=== PATIENT | female | born 2000 | race Two or more races ===

== ENCOUNTER 2025-04-13 14:16 | Emergency (ER) | payer MEDICARE, MEDICAID, SELFPAY ==
[2025-04-13 14:32] VITALS: BP 112/74; PULSE 73; RESP 18; TEMP 36.6; O2SAT 96; BMI 21.7
--- NOTE | 2025-04-13 14:41 | XR_ITS ---
Examination: CT brain head without contrast. 2-D sagittal coronal reconstructions Date and time of exam: April 13, 2025, 1546 hours INDICATIONS: Injury to the head today, head pain CTDI: vol (mGy): 47.5 DLP: (mGycm): 882 Technique: Multiple CT axial sections of the brain have been obtained, 5 mm slice thickness. Contrast has not been administered. 2-D sagittal, coronal reconstructions have been obtained Low dose protocols were performed. One or more of the following dose reduction techniques were used; automated exposure control, adjustment of the mA and/or KV according to patient size, use of iterative reconstruction technique. Findings: No significant ventricular enlargement. Intra-axial or extra-axial hemorrhage density is not seen. No mass effect or midline shift Basal cisterns are not remarkable. Fourth ventricle is midline. Cranial vault intact. Impression: Negative for acute hemorrhage, mass effect or midline shift
[2025-04-13] MEDS: ACETAMINOPHEN 500 MG TABLET 1000 MG PO (16:28)
--- NOTE | 2025-04-13 17:29 | PRELIM_ITS ---
CT scan of the head without intravenous contrast (axial sections with sagittal and coronal reformats) April 13, 2025 1546 hours Clinical History: head trauma Comparison: No prior study is available for comparison. Findings: No evidence of intracranial hemorrhage, mass effect or midline shift. The ventricles and CSF spaces are unremarkable. There is a mucosal thickening with small retention cyst or polyp in the left maxillary sinus. The calvarium is unremarkable. Other structures are unremarkable. Impression: No evidence of intracranial hemorrhage, mass effect or midline shift. Other findings as described above. Report Electronically Signed By: Khurram Shankar 04/13/2025 5:28:55 PM [EST]
--- NOTE | 2025-04-13 17:47 | PD.EDRME ---
Rapid Medical Screening Exam RME Arrival date/time: 04/13/25 14:16 25-year-old female presents to the emergency department today stating that she hit her head on a ladder patient reports head pain Chief Complaint: Head Injury Time Seen by Provider: 04/13/25 14:18 Vital signs: Vital Signs Temperature 97.9 F 04/13/25 14:32 Pulse Rate 73 04/13/25 14:32 Respiratory Rate 18 04/13/25 14:32 Blood Pressure 112/74 04/13/25 14:32 Pulse Oximetry (%) 96 04/13/25 14:32 Oxygen Delivery Method Room Air 04/13/25 14:32 Vital signs reviewed by provider: Yes Exam: On exam patient does not appear ill or toxic no acute distress Neurological exam normal Clinical Impression: Imaging ordered Tylenol given
--- NOTE | 2025-04-13 19:36 | EDNOTE_ITS ---
ED Head Injury RME/HPI General Chief complaint: Head Injury Stated complaint: BECK today, hit head yesterday on ladder Time Seen by Provider: 04/13/25 14:18 Arrival date/time: 04/13/25 14:16 25-year-old female patient came in for evaluation regarding headache. Patient had head injury last December, patient fell down the horse, and this morning patient hit his head resulting into headache described as dull ache, severity moderate. Denies any nausea or vomiting. Denies any LOC patient is ambulatory. RME / HPI RME / HPI Narrative: 04/13/25 14:16 25-year-old female presents to the emergency department today stating that she hit her head on a ladder patient reports head pain Exam: On exam patient does not appear ill or toxic no acute distress Neurological exam normal Impression: Imaging ordered Tylenol given Related Data Previous Rx's ?Medication ?Instructions ?Recorded meclizine 12.5 mg tablet 12.5 mg PO TID PRN dizziness #20 03/24/24 tabs scopolamine base 1 mg over 3 days 1 mg topical .72 jose alfredo rs PRN 03/24/24 transdermal patch (Transderm-Scop) dizziness #10 ea ibuprofen 600 mg tablet 600 mg PO Q8H PRN pain #30 t abs 04/13/25 Allergies Allergy/AdvReac Type Severity Reaction Status Date / Time NKA Allergy Unknown Uncoded 04/13/25 14:21 Review of Systems Review of Systems Narrative Review of Systems: Review of system reviewed and within normal limits except mentioned in HPI ED Exam Narrative Physical exam: VITAL SIGNS: Reviewed. GENERAL APPEARANCE: Alert and interactive, follows commands, no acute distress, HEAD AND FACE: Non-traumatic. ENT: PERRL, pink conjunctivitis, eyelid no trauma, Mucous membrane moist. NECK: Supple, nontender, no nuchal rigidity. CHEST: No tenderness, no crepitus, no paradoxical movement, no retractions. LUNGS: Clear, well ventilated, symmetric, no rales, no wheezing, no ronchi, no s tridor, good breath sounds bilaterally. HEART: Regular rate, regular rhythm, no murmur, no gallops. ABDOMEN: Soft, positive bowel sounds, nondistended, no guarding, nontender, no rebound, no masses, RECTAL: Deferred. GENITAL: Deferred. NEUROLOGICAL: Gross motor function intact sensory function intact, Appropriate for age. MUSCULOSKELETAL: low back nontender, full range of motion. EXTREMITIES: Nontender, full range of motion. SKIN: Color pink, dry, no rash, no lacerations, no abrasions, no contusions. LYMPHATICS: Deferred. Course Quality Measures none Orders Category Date Time Status CT head/brain wo con Stat Exams 04/13/25 14:41 Completed Acetaminophen Tab [Tylenol ES Tab] Med 04/13/25 15:51 Discontinued 1,000 mg PO X1 ONE Vital Signs Vital signs: Vital Signs Temperature 97.9 F 04/13/25 14:32 Pulse Rate 73 04/13/25 14:32 Respiratory Rate 18 04/13/25 14:32 Blood Pressure 112/74 04/13/25 14:32 Pulse Oximetry (%) 96 04/13/25 14:32 Oxygen Delivery Method Room Air 04/13/25 14:32 Head Injury MDM Narrative [facility] Narrative:: 04/13/25 14:16 25-year-old female patient came in for evaluation regarding headache. Patient had head injury last December, patient fell down the horse, and this morning patient hit his head resulting into headache described as dull ache, severity moderate. Denies any nausea or vomiting. Denies any LOC patient is ambulatory. CT scan of the head came back unremarkable. Results discussed with the patient and family. Patient stable for discharge home. Patient was given Motrin with significant for headache Stable for discharge home Patient data External records reviewed:: None Clinical information provided by:: patient and family Social determinants that could affect healthcare access:: none Patient has the following chronic illnesses:: None How is presenting disease/condition affected by chronic disease/condition?: no chronic disease Evaluation data The following diagnostics were reviewed and interpreted by me:: radiology exam(s) Lab and/or radiology exams considered but not ordered:: None Interpretation Summary: See results [facility] Medications / Prescriptions Medications or Prescriptions considered but not ordered:: None Medication administrations:: Medication Administration History Discontinued Medications Acetaminophen (Acetaminophen 500 Mg Tablet) 1,000 mg PO X1 ONE Stop: 04/13/25 15:52 Last Admin: 04/13/25 16:28 Dose: 1,000 mg Documented By: ED Tylenol Consultations Consultation(s) initiated? (list below): No Diagnosis Differential diagnosis head injury: closed head injury and other (Headache, contusion) Most likely diagnosis given after review of the tests above:: Headache Admission Indicated Admission indicated?: not indicated Admission Request Was there a request for admission?: No Disposition Plan Disposition Plan: Discharge Discharge Attestation Discharge Attestation: The patient and all family members were given an opportunity to ask questions and understood the discharge instructions. Discharge instructions specifically effects, indications for sooner follow up or return to the emergency department, and the expected course of current diagnosis. Patient condition: Stable Discharge Plan Plan Patient Disposition: HOME (Self Care) Discharge Disposition comment: Stable Prescriptions/Referrals Prescriptions/Med Rec: New ibuprofen 600 mg tablet 600 mg PO Q8H PRN (Reason: pain) Qty: 30 0RF No Action meclizine 12.5 mg tablet 12.5 mg PO TID PRN (Reason: dizziness) Qty: 20 0RF scopolamine base [Transderm-Scop] 1 mg over 3 days patch 3 day 1 mg topical .72 hours PRN (Reason: dizziness) Qty: 10 0RF Referrals: Haley Vargas FNP [Primary Care Provider] - In 1 week Problem List Clinical Impression: Headache Patient/Caregiver Discharge Instructions Discharge Activity: activity as tolerated Education Materials: Self-Care for Headaches Additional Instructions: Thank you for the opportunity for serving you today. You are stable for discharged . You are advised to: Follow-up with your PCP in 1 to 2 days Return to ED for worsening of symptoms Increase oral fluids Take medication as prescribed Print Language: Pakistani Stand Alone Forms: Shamika Award Info., Patient Portal Info Letter KERON/CARA Supervising Physician FAUSTINO Supervising Physician: MD Dony
[2025-04-13 20:00] VITALS: RESP 18
== END 2025-04-13 20:00 | disposition home or self-care (01) ==
PROVIDERS: Emergency Provider Emergency Medicine; PCP Registered Nurse Community Health
DX: S09.90XA Unspecified injury of head, initial encounter (principal); W19.XXXA Unspecified fall, initial encounter
CPT/HCPCS: 70450; 99282; A9270